=== PATIENT | female | born 1945 | race Caucasian/White ===

== ENCOUNTER 2017-09-10 05:19 | Day surgery (SDC) | payer OTHER, BC ==
[~2017-09-10] VITALS: Ht 162.6 cm; Wt 78.0 kg
--- NOTE | ~2017-09-10 | O ---
[facility] [place] [address] OPERATIVE REPORT Name: ROSAMARIA BRISCOE Room #: 150-9 [facility]..#: [id number] Admission: 09/10/17 Attend Phys: Ander Anders MD Discharge: Date of : 47 Report #: [id number] THIS REPORT FOR: //name// CC: Joie Land M.D. FAM unknown Ander Anders DATE OF SERVICE: 09/10/2017 SURGEON: Ander Anders M.D. CLAIMS AGENT RIGHT OF WAY: None. PREOPERATIVE DIAGNOSIS: Bilateral upper lid dermatochalasia with superior visual field defect. POSTOPERATIVE DIAGNOSIS: Bilateral upper lid dermatochalasia with superior visual field defect. OPERATION PERFORMED: Bilateral upper lid functional blepharoplasty. ANESTHESIA: Local with IV sedation. COMPLICATIONS: None. INDICATIONS FOR SURGERY: This patient has acquired upper lid dermatochalasia with superior visual field loss both eyes because of excessive upper lid tissues to include skin and fat. Visual field testing demonstrates dense superior visual defects. Retesting with the upper lid elevated shows an improvement in visual field loss of over 30% and in excess of 12 degrees. The current procedures are undertaken in order to improve the patient's visual function. Informed consent was obtained to include but not limited to the loss of vision, bleeding, infection, scarring, failure to improve the problem and need for further surgery. DESCRIPTION OF OPERATION: The patient was taken to the operating room, where 2% Xylocaine with epinephrine mixed with equal parts of 0.75% Marcaine with Wydase was administered transcutaneously to each upper lid. The patient was then prepped and draped in the usual sterile fashion and a skin-marking pen was then utilized to outline an upper lid crease that was symmetrical on each side. Graefe forceps were then used to quantitate the redundant upper lid skin and it was similarly outlined. The incisions were then made with Meagan scissors and a skin-muscle flap removed from each side with high-temp cautery. Hemostasis was achieved with the monopolar cautery as it was throughout the case. The orbital septum was then identified and the central and medial fat pads were [address] [address] OPERATIVE REPORT Name: LUIS FELIPEROSAMARIACasie SHANE Room #: 150-9 [facility] M..#: [id number] Admission: 09/10/17 Attend Phys: Ander Anders MD Discharge: Date of : 47 Report #: [id number] inspected. The redundant soft tissue was then sculpted with the monopolar cautery. The upper lid crease was then reformed with tightening of the pretarsal orbicularis muscle. The upper lid crease was then further reformed with multiple interrupted 6-0 chromic sutures. The skin was then closed with a running 6-0 plain gut suture. The wound was then cleaned and dressed with ophthalmic antibiotic ointment and a nonstick dressing. The patient was transported to the recovery area, where cold compresses were applied, having tolerated the procedure well with no anesthetic or operative complications being noted. By: [id number] Ander Anders MD /nt
[~2017-09-10 05:19] MED LIST: AZITHROMYCIN 2250 MG PO; BYSTOLIC 5 MG5 M1 PO; CENTRUM SILVER1 EAC4 PO; CLARITIN10 MG PO; FLONASE 0.05%50 MCG NASAL; GLUMETZA500 PO; HYZAAR 100-251 EACH PO; METFORMIN HCL500 MG PO; MOBIC15 MG PO; NORCO 5-325 TA1 EACH PO; NORVASC5 MG PO; PROZAC20 MG PO; VITAMIN B-12250 MCG PO; VITAMIN D1000 UNI1 PO; XANAX1 MG PO; ZOCOR20 MG PO
[2017-09-10 07:00] VITALS: BP 144/63
== END 2017-09-10 08:30 | disposition home or self-care (01) ==
LOC: OR 05:19 → TBA 05:20 → OR 08:30
DX: H02.834 Dermatochalasis of left upper eyelid (principal); H02.831 Dermatochalasis of right upper eyelid; H53.461 Homonymous bilateral field defects, right side; H53.462 Homonymous bilateral field defects, left side; I10 Essential (primary) hypertension; E11.9 Type 2 diabetes mellitus without complications; M19.90 Unspecified osteoarthritis, unspecified site; F32.89 Other specified depressive episodes; F41.8 Other specified anxiety disorders; Z87.891 Personal history of nicotine dependence; Z85.828 Personal history of other malignant neoplasm of skin; Z90.710 Acquired absence of both cervix and uterus; Z98.890 Other specified postprocedural states; Z88.6 Allergy status to analgesic agent; Z79.899 Other long term (current) drug therapy
CPT/HCPCS: 50010; 50101; 50386; 50398; 51636; 56531; 62110; 62850; 70005

== ENCOUNTER → 2020-01-06 | Outpatient (CLI) | payer OTHER | LOC: CAT 15:23 | DX: Z13.6 Encounter for screening for cardiovascular disorders (principal); E78.00 Pure hypercholesterolemia, unspecified; I25.10 Atherosclerotic heart disease of native coronary artery without angina pectoris ==